=== PATIENT | male | born 1980 | race Caucasian/White ===

== ENCOUNTER → 2021-03-20 | Outpatient (CLI) | payer OTHER ==
[2014-07-20 16:00] VITALS: BP 121/84
[~2021-03-20] MED LIST: AMIT25TA PO; ATOR20TA58 PO; DIPH25CA58 PO; GABA600T7 PO; LEVO750T31 PO; METH-562 PO; RANI150C PO; TRAM50TA PO
--- NOTE | 2021-03-20 13:02 | PDOC1 ---
INITIAL PAIN CONSULT DATE OF SERVICE: DOS: DATE: 03/20/21 TIME: 12:56 CHIEF COMPLAINT: Chief Complaint: Neck and bilateral upper extremity pain right greater than left HISTORY OF PRESENT ILLNESS: 41-year-old male presents with history of pain for many years 2006 on with pain the base of neck and shoulders upper extremities radiating to the right and left upper extremities worse on the right side getting worse now over the past year or so not the result of any recent specific injury or accident patient has had interbody disc replacement at C6-7 in 2016 which she reports did decrease the pain to some extent at that time but was not lasting patient reports is much worse on the right than the left upper extremity but without any overt muscular loss with some fatigability the right arm compared to the left but pain and radiating pain into both of the upper extremities patient reports is constant sharp stabbing throbbing shooting radiating the upper extremities with tingling and numbness and itching in the hands as well as aching in the neck patient reports awakening from sleep least once or twice a night is not effective bowel bladder control was ability to walk or work he is still working he is been doing exercise stretching strengthening as well has had physical therapy in the past to do exercises from those also has some trigger point injections with his primary physician physician also had epidural injection prior to his surgery which helps but temporarily patient is taking gabapentin also Robaxin and tramadol all of which decrease the pain by about 20 to 50% patient rates his disability rating 0-10 10 being the worst is 8 with family responsibilities and social activity occupation for sexual here 5 with self-care and 7 with life support activities specially sleeping. Patient did have a MRI scan of the cervical spine which we reviewed with him today showing foraminal stenosis at the C5-6 C6-7 and C7-T1 distribution bilaterally. Patient reports no loss of motor function once again with significant fatigability specially the right upper extremity with reaching weightbearing reaching forward and any repetitive motions also driving a car using his right hand and patient is right-handed. PAST MEDICAL HISTORY: PMH: Arthritis, gastroesophageal reflux PREVIOUS SURGERIES: Past Surgical Hx: Appendectomy, inguinal hernia repair, right ulnar nerve transposition, cervical disc replacement 2015 CURRENT MEDICATIONS: Current Meds: Active Scripts Medications Dose Route/Sig Max Daily Dose Days Date Category Atorvastatin Calcium 20 Mg Tablet 1 Tab PO DAILY 03/20/21 Reported Methocarbamol 750 Mg Tablet 750 Mg PO DAILY 03/20/21 Reported Tramadol Hcl 50 Mg Tablet 50 Mg PO Q6H PRN 07/16/14 Reported Gabapentin 600 Mg Tablet 600 Mg PO TID 07/16/14 Reported ALLERGIES; Allergies: Coded Allergies: No Known Medication Allergies (Verified Allergy, Unknown, 07/20/14) Uncoded Allergies: artificial sweeteners (Adverse Reaction, Unknown, unkown, 07/16/14) FAMILY HISTORY: Family Hx: Hyper tension, hypercholesterolemia, diverticulitis, heart disease SOCIAL HISTORY: Social Hx: Patient does not lauren alcohol does not smoke says any illegal illicit recreational drugs is has 3 children living at home lives locally in [place], [place]. 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 PHYSICAL EXAM: VS: Blood pressure is 133/86 pulse 90 respirations 18 temperature 97.8 F height is 5 foot 8 inches weight is 191 pounds. PE: PHYSICAL EXAMINATION: GENERAL: The patient is awake, alert, oriented, appropriate, very pleasant in demeanor HEENT: Shows normocephalic, atraumatic. Extraocular movements are intact and symmetrical. Oral cavity: Mucous membranes moist and pink. Dentition is intact. NECK: Shows anterior throat supple without palpable lymphadenopathy noted. Swallow reflex symmetrical. CHEST: Shows normal on inspection. Breath sounds are clear bilaterally, distant no rales or rhonchi. HEART: Shows S1, S2 clear. No murmurs auscultated. ABDOMEN: Soft, nontender, nondistended. No palpable organomegaly is noted. BACK: Shows spine grossly in the midline. Normal-appearing cervical lordotic curvature. Cervical paraspinous muscles show symmetrical with inspection, on palpation some moderate tenderness diffusely throughout the upper middle lower d ecrease the paraspinous muscles but only diffusely without significant radiation without trigger points. Patient shows full rotation of motion the cervical spine both laterally as well as extension flexion without significant decrease in pain as well. There is slightly increased thoracic kyphosis, some minor flattening of the lumbar lordotic curvature. EXTREMITIES: Upper extremities show deep tendon reflexes 2+ in the biceps and triceps tendons. Motor exam is 4 on a scale of 5 with right legal examiner, biceps and triceps flexion and 5/5 on the left. Peripheral pulses are 2+ radial. No peripheral edema is noted bilaterally. Upper extremities are warm and dry to touch, equal in color and appearance. SKIN: Shows warm and dry, good turgor. No edema. No sores, rashes or bruising throughout. IMPRESSION: Impression: 41-year-old male with pain base of neck bilateral upper extremities right greater than left and radicular fashion following a C6-7 dermatomal distribution. MRI scan cervical spine as noted Arthritis Gastroesophageal reflux Plan: Options were discussed with patient clued continued physical therapies medication management and interventional techniques. Patient would like to pursue interventional techniques. We discussed a cervical epidural steroid injection using description as well as anatomical models described procedure. Patient wait for preauthorization with his insurance prior, once obtained with him return for translaminar approach C6-7 level cervical epidural steroid injection with fluoroscopic guidance. In the meantime, patient will continue with stretching strength exercise as well as oral analgesics as currently. RACHELL NICOLAS MD Mar 20, 2021 13:02
== END | disposition home or self-care (01) ==
LOC: PNCL 07:56
PROVIDERS: ATTEND Anesthesiology
DX: M54.2 Cervicalgia (principal); M79.602 Pain in left arm; M79.601 Pain in right arm; M19.90 Unspecified osteoarthritis, unspecified site; K21.9 Gastro-esophageal reflux disease without esophagitis; Z79.899 Other long term (current) drug therapy; Z98.890 Other specified postprocedural states; Z82.49 Family history of ischemic heart disease and other diseases of the circulatory system; Z88.8 Allergy status to other drugs, medicaments and biological substances
CPT/HCPCS: G0463

== ENCOUNTER → 2021-04-03 | Outpatient (CLI) | payer OTHER ==
[2014-07-20 16:00] VITALS: BP 121/84
[~2021-04-03] MED LIST changes: +IOHEXOL 180 MG/ML 10 ML VIAL. ONE; +methylPREDNISolone ACETATE 40 MG/ML VIAL. ONE; +methylPREDNISolone ACETATE 80 MG/ML VIAL. ONE
--- NOTE | 2021-04-03 09:48 | PDOC4 ---
Procedure Note: ICD 10 Code: ICD 10 Code: M54.12 M5 0.30 M4 8.02 Procedure Note: Patient was consented for cervical epidural steroid injection with fluoroscopic guidance. Risks were discussed including but not limited to: Bleeding, infection, possibility of epidural hematoma and subsequent neurological compromise, dural puncture, headaches, spinal cord and/or nerve damage, side effects of steroid medication, and poor results regarding pain control. Patient understands and wished to proceed. Procedure cervical epidural steroid injection at the C6-7 level, using local anesthetic under sterile prep and drape using C-arm fluoroscopic guidance under local anesthesia medications injected ;120 mg Depo-Medrol +5 mL normal saline and 2 mL contrast; condition at discharge is stable patient tolerated procedure well. and had no complications RACHELL NICOLAS MD Apr 03, 2021 09:48
--- NOTE | 2021-04-03 09:48 | PDOC ---
Progress Note - Pain Clinic Date of Service: DOS: DATE: 04/03/21 TIME: 09:44 Diagnosis: Dx: Cervical radiculopathy with cervical degenerative disease and cervical spinal stenosis History or Present Illness: HPI: 41-year-old male with pain in the base of neck and bilateral upper extremities right greater than left radiating into the arms and hands worse with repetitive motions lifting weightbearing reaching over his head with his hands describes tingling and burning in the arm and shoulder sharp in the neck constant and se jaqueline in the arms and hands rates a 9 on scale 10 is worse over the past week 7 on average/and is a 7 today patient reports better with sitting resting propping his arms up or laying down generally does not awaken her from sleep at night patient reports no deficits but significant fatigability especially the right upper extremity and tingling and burning in the forearm on the right greater than the left. Patient reports no bowel or bladder incontinence. Physical Exam: VS: Blood pressure is 121/75 pulse 82 respirations 18 temperature 98.5 F height 5 feet 8 inches weight is 189 pounds PE: PHYSICAL EXAMINATION: GENERAL: The patient is awake, alert, oriented, appropriate, very pleasant in demeanor HEENT: Shows normocephalic, atraumatic. Extraocular movements are intact and symmetrical. Oral cavity: Mucous membranes moist and pink. Dentition is intact. NECK: Shows anterior throat supple without palpable lymphadenopathy noted. Swallow reflex symmetrical. CHEST: Shows normal on inspection. Breath sounds are clear bilaterally, no rales rhonchi. HEART: Shows S1, S2 clear. No murmurs auscultated. ABDOMEN: Soft, nontender, nondistended. BACK: Shows spine grossly in the midline. Normal-appearing cervical lordotic curvature. Cervical paraspinous muscles show symmetrical inspection, palpation some moderate tenderness diffusely bilaterally going diffusely without significant radiation slightly more the right than left without trigger points without atrophy hypertrophy or asymmetry. Patient shows full rotation motion cervical spine both laterally as well as full extension full forward flexion. There is slightly increased thoracic kyphosis, some minor flattening of the lumbar lordotic curvature. EXTREMITIES: Upper extremities show deep tendon reflexes 2+ in the biceps and triceps tendons. Motor exam is 4 on a scale of 5 with right training and development head, biceps and triceps flexion and 5/5 on the left. Peripheral pulses are 2+ radial. No peripheral edema is noted bilaterally. Upper extremities are warm and dry to touch, equal in color and appearance. SKIN: Shows warm and dry, good turgor. No edema. No sores, rashes or bruising throughout. Procedure: Procedure: Options were discussed with patient. Patient chart was reviewed as his current medication regimen updated current review of systems updated today as well. We will proceed with a cervical epidural steroid injection today with fluoroscopic guidance. Risks were discussed including but not limited to: Bleeding, infection, possibility of epidural hematoma and subsequent neurological compromise, dural puncture, headaches, spinal cord and/or nerve damage, side effects of steroid medication, and poor results regarding pain control. Patient understands and wished to proceed. Patient will return to clinic in approximately 2 weeks for follow-up, was counseled as to return appointment, activity level, and side effect to be aware of. Medication Injected: Med Injected: Procedure cervical epidural steroid injection at the C6-7 level, using local anesthetic under sterile prep and drape using C-arm fluoroscopic guidance under local anesthesia medications injected ;120 mg Depo-Medrol +5 mL normal saline and 2 mL contrast; condition at discharge is stable patient tolerated procedure well. and had no complications Condition at Discharge: Condition at Discharge: Condition at discharge stable, patient tolerated the procedure well and had no complications. RACHELL NICOLAS MD Apr 03, 2021 09:48
== END | disposition home or self-care (01) ==
LOC: PNCL 08:56
PROVIDERS: ATTEND Anesthesiology
DX: M50.10 Cervical disc disorder with radiculopathy, unspecified cervical region (principal); M48.02 Spinal stenosis, cervical region; M54.12 Radiculopathy, cervical region; K21.9 Gastro-esophageal reflux disease without esophagitis; Z79.899 Other long term (current) drug therapy; Z98.890 Other specified postprocedural states; Z82.49 Family history of ischemic heart disease and other diseases of the circulatory system
CPT/HCPCS: 62321; J1030; J1040; Q9965